=== PATIENT | female | born 1975 | race Caucasian/White ===

== ENCOUNTER 2017-02-02 06:18 | Inpatient (IN) | payer OTHER ==
[2017-01-30 12:21] VITALS: BMI 32.5
[2017-02-02] VITALS (23 sets, daily range): BP systolic 116–154; BP diastolic 57–99; PULSE 75–108; RESP 16–23; Ht 175.3 cm; Wt 105.2 kg
[~2017-02-02] VITALS: Ht 175.3 cm; Wt 105.2 kg
[~2017-02-02 06:18] MED LIST: METF500T4 PO; PROP40TA4 PO; SIMV40TA2 PO; VENL100T PO
[2017-02-02 07:56] LABS: ADD SCAN DIFF NO
[2017-02-02 08:03] LABS: BASOPHILS % 0.2 % (0.0-2.0); EOSINOPHILS # 0.5 10^3/ul (0.0-0.5); EOSINOPHILS % 3.5 % (0.0-7.0); HEMATOCRIT 44.8 % (37.0-47.0); HEMOGLOBIN 15.2 g/dl (12.0-16.0); LYMPHOCYTES # 4.4 10^3/ul (0.8-2.9); MEAN CORPUSCULAR HEMOGLOBIN 32.1 pg (29.0-33.0); MEAN CORPUSCULAR HGB CONC 33.9 g/dl (32.0-37.0); MEAN CORPUSCULAR VOLUME 94.5 fl (82.0-101.0); MEAN PLATELET VOLUME 11.2 fl (7.4-10.4); MONOCYTE # 0.7 10^3/ul (0.3-0.9); MONOCYTES % 5.1 % (0.0-11.0); NEUTROPHIL # 8.2 10^3/ul (1.6-7.5); NEUTROPHILS % 58.8 % (39.0-77.0); PLATELET COUNT 263 10^3/UL (140-415); RED BLOOD COUNT 4.74 10^6/ul (4.20-5.40); RED CELL DISTRIBUTION WIDTH 13.2 % (11.5-14.5); WHITE BLOOD COUNT 13.9 10^3/ul (4.8-10.8)
[2017-02-02] MEDS ORDERED: CEFAZOLIN 2 GM/50 ML (PMX) 50 ML IVPB SCH (08:30)
[2017-02-02] MEDS: LACTATED RINGER'S 1,000 ML IV* SCH ×3 (08:30→17:07)
[2017-02-02] MEDS ORDERED: VANCOMYCIN 1 GM (PMX) 250 ML ONE (08:31)
--- NOTE | 2017-02-02 08:50 | HPN ---
Date/Time of Note Date/Time of Note DATE: 02/02/17 TIME: 08:49 Interval H&P Admission Note Pt. seen H&P reviewed: No system changes TAMEKA PALMA MD February 02, 2017 08:49
[2017-02-02] MEDS ORDERED: BUPIVACAINE 0.25% (MPF) 10 ML 10 ML VIAL ONE (08:57)
[2017-02-02] MEDS ORDERED: THROMBIN 5000 UNIT VIAL ONE ×2 (08:57→13:01)
[2017-02-02] MEDS ORDERED: GELATIN SIZE 100 SPONGE ONE (08:57)
[2017-02-02] MEDS ORDERED: CEFAZOLIN 1 GM INJ ONE (08:57)
[2017-02-02] MEDS ORDERED: HEPARIN 1000 UNITS/ML 10 ML INJ ONE (08:58)
[2017-02-02] MEDS ORDERED: VANCOMYCIN 1 GM (PMX) 250 ML IVPB SCH (09:00)
[2017-02-02] MEDS ORDERED: ROCURONIUM 50 MG INJ ONE ×2 (09:18→09:51)
[2017-02-02] MEDS ORDERED: LIDOCAINE 2% (SDV) 5 ML INJ ONE (09:18)
[2017-02-02] MEDS ORDERED: MIDAZOLAM 1 MG/ML 2 ML INJ ONE ×2 (09:18→09:29)
[2017-02-02] MEDS ORDERED: SUCCINYLCHOLINE CHLORIDE 100 MG/5 ML SYG IV ONE ×2 (09:18→09:51)
[2017-02-02] MEDS ORDERED: PROPOFOL 20 ML ONE ×2 (09:18→10:33)
[2017-02-02] MEDS ORDERED: METOCLOPRAMIDE 10 MG INJ ONE (09:52)
[2017-02-02] MEDS ORDERED: ONDANSETRON 4 MG INJ ONE (09:52)
[2017-02-02] MEDS ORDERED: FAMOTIDINE 20 MG INJ ONE (09:54)
[2017-02-02] MEDS ORDERED: THROMBIN(HUM PLAS)/FIBRINOG/CA 5 ML VIAL TOP ONE ×2 (10:36→15:59)
[2017-02-02] MEDS ORDERED: ESMOLOL 10 ML ONE ×2 (11:34→13:03)
[2017-02-02] MEDS ORDERED: BACITRACIN 50000 UNITS INJ IRR ONE (13:15)
[2017-02-02] MEDS ORDERED: MEPERIDINE 25 MG INJ IV PRN (15:00)
[2017-02-02] MEDS ORDERED: FENTAnyl 50 MCG/ML VIAL IV PRN ×3 (15:00)
[2017-02-02] MEDS ORDERED: HYDROmorphONE (0.2 MG/ML) 10ML SYG IV PRN ×3 (15:00)
[2017-02-02] MEDS ORDERED: DIPHENHYDRAMINE 50 MG INJ IV PRN (15:00)
[2017-02-02] MEDS ORDERED: ONDANSETRON 4 MG INJ IV PRN ×2 (15:00→17:30)
[2017-02-02] MEDS ORDERED: PROCHLORPERAZINE 10 MG INJ IV PRN (15:00)
[2017-02-02] MEDS ORDERED: HYDROmorphONE 2 MG/ML SYG ONE (15:35)
[2017-02-02] MEDS ORDERED: FENTAnyl 50 MCG/ML VIAL ONE (15:35)
[2017-02-02] MEDS ORDERED: HYDROmorphONE 0.2 MG/ML PCA ONE (16:51)
--- NOTE | 2017-02-02 17:08 | OPR ---
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 Foraminal stenosis at L4-5 and L5-S1 bilaterally Postoperative Diagnosis Same Operation Performed Transforaminal lumbar interbody fusion at L4-5 Transforaminal lumbar interbody fusion at L5-S1 Placement of peek cage with bone morphogenic protein and local bone graft at L4- 5 and L5-S1 interspaces Segmental spinal fixation with Alphatec pedicle screws and rods from L4 to the sacrum Repair of iatrogenic dural tear L4 Revision of scar (20 cm AP and lateral intraoperative fluoroscopic imaging Intraoperative nerve monitoring (4-1/2 hours) Surgeon: TAMEKA PALMA MD patient services assistant: MATEO LIMON Anesthesia: general Anesthesiologist: ISAC MOHR MD Estimated Blood Loss: other Specimens Herniated discs L4-5 and L5-S1 Tubes/Drains 2 medium Hemovac drains employed Complications: None Pt Condition Post Procedure: stable Disposition: PACU Operative\Procedure Findings At surgery, the patient had recurrent disc herniations at L4-5 and L5-S1 along with post laminectomy instability at L4-5 and L5-S1 and foraminal stenosis. TAMEKA PALMA MD February 02, 2017 17:08
--- NOTE | 2017-02-02 17:25 | RADRPT ---
PROCEDURE: Intraoperative imaging of the lumbar spine with fluoroscopy. CLINICAL INDICATION: Back pain. Intraoperative. TECHNIQUE: 7 images of the lumbar spine were obtained in the operating room with an image intensif ier. No radiologist was in attendance. 55 seconds of fluoroscopy time was used. COMPARISON: 07/16/2016. FINDINGS: For the purposes of this report, the last apparent true disc level is considered to be L5-S1. Based on this, images demonstrate posterior fusion with pedicle screws and connecting rods at L4, L5, and S1. IMPRESSION: 1. Intraoperative imaging of the lumbar spine. RPTAT: QQ .Chauncey Sahu MD, MD Date Time Electronically viewed and signed by .Chauncey Sahu MD, on 02/02/2017 17:25 .R/
[2017-02-02] MEDS ORDERED: NALOXONE (0.4 MG/ML) INJ IV PRN (17:30)
[2017-02-02] MEDS ORDERED: GLUCAGON 1 MG INJ IM PRN (17:30)
[2017-02-02] MEDS ORDERED: TRIMETHOBENZAMIDE 100 MG/ML VIAL IM PRN (17:30)
[2017-02-02] MEDS ORDERED: DIAZEPAM 5 MG/ML SYG IM PRN (17:30)
[2017-02-02] MEDS ORDERED: BETHANECHOL 25 MG TAB PO PRN (17:30)
[2017-02-02] MEDS ORDERED: AL HYDROX/MG HYDROX/SIMETH 30 ML CUP PO PRN (17:30)
[2017-02-02] MEDS ORDERED: HYDROCODONE/APAP (5/325) TAB PO PRN ×2 (17:30)
[2017-02-02] MEDS ORDERED: GLUCOSE GEL 15 GRAM TUBE BUCCAL PRN (17:30)
[2017-02-02] MEDS ORDERED: PROCHLORPERAZINE 10 MG TAB PO PRN (17:30)
[2017-02-02] MEDS ORDERED: CEPASTAT LOZENGE MT PRN (17:30)
[2017-02-02] MEDS ORDERED: NACL 0.9% 3 ML SYG IV SCH (17:30)
[2017-02-02] MEDS ORDERED: INSULIN ASPART [NOVOLOG] 3 ML PEN SC ONE (17:30)
[2017-02-02] MEDS ORDERED: DEXTROSE 50% 50 ML SYRINGE IV PRN ×2 (17:30)
[2017-02-02] MEDS ORDERED: GLUCOSE GEL 15 GRAM TUBE PO PRN ×2 (17:30)
[2017-02-02] MEDS ORDERED: ACETAMINOPHEN 325 MG TAB PO PRN (17:30)
[2017-02-02] MEDS ORDERED: ZOLPIDEM 5 MG TAB PO PRN (17:30)
[2017-02-02] MEDS ORDERED: DIPHENHYDRAMINE 50 MG CAP PO PRN (17:30)
[2017-02-02] MEDS: HYDROmorphONE 0.2 MG/ML PCA IV SCH (17:34)
[2017-02-02] MEDS: SOD CHLORIDE 0.45% 1,000 ML IV SCH (18:29)
[2017-02-02] MEDS: RANITIDINE 150 MG TAB PO SCH (20:13)
[2017-02-02] MEDS: VANCOMYCIN 1 GM (PMX) 250 ML IVPB SCH (20:13)
--- NOTE | 2017-02-02 20:23 | PN ---
Date/Time of Note Date/Time of Note DATE: 02/02/17 TIME: 19:59 Assessment/Plan VTE Prophylaxis VTE Prophylaxis Intervention: SCD's Lines/Catheters IV Catheter Type (from Nrsg): Peripheral IV Urinary Cath still in place: Yes Reason Cath still needed: other (indicate) (bed bound post surgical) Assessment/Plan Chief Complaint/Hosp Course S/p transforaminal interbody fusion L5-S1 WBC trending down as of labs this AM, repeat labs tomorrow AM Will monitor blood glucose. Restart PO metformin in AM. RISS coverage. Surgery will follow for post-op care. Problems: Subjective 24 Hr Interval Summary Free Text/Dictation The patient is 41 y/o female with history of DM2, HLD, Migraine headaches and DDD who is status post Transforaminal lumbar interbody fusion at L5-D5oxczc peek interbody cages yoko, bmp and screws on 02/02/2017. Preop FSG 223. The patient is in bed resting. Reporting pain up to a 8/10 (on WEEKEND RECEPTIONIST pump). She denies nausea, vomiting, abdominal pain, chest pain or shortness of breath at this time. Last FSG 220. Constitutional: No chills, No diaphoresis, No disoriented, No febrile Eyes: no complaints ENT: other (dry mouth) Respiratory: no complaints Cardiovascular: no complaints Gastrointestinal: no complaints Genitourinary: no complaints Musculoskeletal: back pain, swelling Skin: no complaints Neurologic: other (sleepy) Endocrine: no complaints Psychological: no complaints Immunologic: no complaints Exam/Review of Systems Vital Signs Vitals Vital Signs Date Time Temp Pulse Resp B/P Pulse Ox O2 Delivery O2 Flow Rate FiO2 02/02/17 18:45 101 20 146/85 98 Nasal Cannula 2.0 02/02/17 18:15 98.2 Exam Constitutional: alert, obese, oriented, well developed Psych: other (somnolent) Head: atraumatic, normocephalic Eyes: EOMI, PERRL, nl conjunctiva, nl lids, nl sclera ENMT: nl external ears & nose, nl nasal mucosa & septum, No mucosa pink and moist (dry) Neck: non-tender, supple Respiratory: clear to auscultation, normal air movement, No congested cough, No crackles/rales, No diminished breath sounds, No labored breathing, No wheezing Cardiovascular: edema, nl pulses, regular rate and rhythm, No murmurs/extra sounds Gastrointestinal: nl liver, spleen, non-tender, soft Genitourinary - Female: other (urinary cath in place draining yellow clear urine) Musculoskeletal: other ([place] in place at surgical L4-S1 site), range of motion (limited due to pain), No spine non-tender (post surgical) Extremities: normal pulses, No calf tenderness, No edema, No tenderness Neurological: OIL PLANT OPERATOR II-XII intact, nl mental status, nl speech, nl strength, No confused Skin: nl turgor, No rash or lesions Results Result Diagram: 02/02/17 0740 Results 24 hrs Laboratory Tests Test 02/02/17 07:40 02/02/17 07:46 02/02/17 17:00 02/02/17 18:45 White Blood Count 13.9 H Red Blood Count 4.74 Hemoglobin 15.2 Hematocrit 44.8 Mean Corpuscular Volume 94.5 Mean Corpuscular Hemoglobin 32.1 Mean Corpuscular Hemoglobin Concent 33.9 Red Cell Distribution Width 13.2 Platelet Count 263 Mean Platelet Volume 11.2 H Neutrophils % 58.8 Lymphocytes % 32.0 Monocytes % 5.1 Eosinophils % 3.5 Basophils % 0.2 Nucleated Red Blood Cells % 0.0 Neutrophils # 8.2 H Lymphocytes # 4.4 H Monocytes # 0.7 Eosinophils # 0.5 Basophils # 0.0 Nucleated Red Blood Cells # 0.0 Bedside Glucose 220 224 H 271 H Medications Medications Current Medications Lactated Ringer's (Lr) 1,000 ml @ 25 mls/hr Q24H IV* Last administered on t 17:07; Start 02/02/17 at 08:30 Miscellaneous Information 1 ea NOTE XX ; Start 02/02/17 at 17:30 Glucose (Glutose) 15 gm Q15M PRN PO DECREASED GLUCOSE; Start 02/02/17 at 17:30 Glucose (Glutose) 22.5 gm Q15M PRN PO DECREASED GLUCOSE; Start 02/02/17 at 17:30 Dextrose (D50w Syringe) 25 ml Q15M PRN IV DECREASED GLUCOSE; Start 02/02/17 at 17:30 Dextrose (D50w Syringe) 50 ml Q15M PRN IV DECREASED GLUCOSE; Start 02/02/17 at 17:30 Glucagon (Glucagen) 1 mg Q15M PRN IM DECREASED GLUCOSE; Start 02/02/17 at 17:30 Glucose 15 gm 15 gm Q15M PRN BUCCAL DECREASED GLUCOSE; Start 02/02/17 at 17:30 Sodium Chloride (1/2 NS) 1,000 ml @ 100 mls/hr Q10H IV Last administered on t 18:29; Admin Dose 100 MLS/HR; Start 02/02/17 at 17:08 Acetaminophen/ Hydrocodone Bitart ([place] (5/325)) 1 tab Q4H PRN PO PAIN LEVEL 1 -5; Start 02/02/17 at 17:30; Status Future Hold Acetaminophen/ Hydrocodone Bitart 2 tab 2 tab Q4H PRN PO PAIN LEVEL 6-10; Start 02/02/17 at 17:30; Status Future Hold Vancomycin HCl (Vancocin) 250 ml @ 125 mls/hr Q12H IVPB ; Start 02/02/17 at 20: 00; Stop 02/03/17 at 09:59 Zolpidem Tartrate (Ambien) 5 mg HS PRN PO INSOMNIA; Start 02/02/17 at 17:30 Prochlorperazine (Compazine) 10 mg Q4H PRN PO NAUSEA AND/OR VOMITING; Start 02/02/17 at 17:30 Trimethobenzamide HCl (Tigan) 200 mg Q4H PRN IM NAUSEA AND/OR VOMITING; Start 02/02/17 at 17:30 Ondansetron HCl (Zofran Inj) 4 mg Q6H PRN IV NAUSEA AND/OR VOMITING; Start 02/02 at 17:30 Al Hydrox/Mg Hydrox/Simethicone (Mag-Al Plus) 15 ml Q4H PRN PO CONSTIPATION; Start 02/02/17 at 17:30 Docusate Sodium (Colace) 100 mg BID PO ; Start 02/03/17 at 09:00 Acetaminophen (Tylenol Tab) 650 mg Q4H PRN PO TEMP GREATER THAN 101F OR DEL CASTILLO; Start 02/02/17 at 17:30 Ascorbic Acid (Vitamin C) 1,000 mg BID PO ; Start 02/03/17 at 09:00 Ferrous Sulfate (Ferrous Sulfate (Ec)) 325 mg TID PO ; Start 02/03/17 at 09:00 Ranitidine HCl (Zantac) 150 mg BID PO ; Start 02/02/17 at 21:00 Diazepam (Valium) 5 mg Q4H PRN PO MUSCLE SPASMS; Start 02/02/17 at 17:30 Diazepam (Valium) 5 mg Q4H PRN IM MUSCLE SPASMS; Start 02/02/17 at 17:30 Phenol (Cepastat Lozenge) 1 lozenge PRN PRN MT SORE THROAT; Start 02/02/17 at 17 :30 Bethanechol Chloride (Urecholine) 25 mg PRN PRN PO UNABLE TO VOID; Start at 17:30 Diphenhydramine HCl (Benadryl) 50 mg Q6H PRN PO PRURITUS; Start 02/02/17 at 17: 30 Hydromorphone HCl (Dilaudid WEEKEND RECEPTIONIST) Q4PCA IV Last administered on 02/02/17t 17:34 ; Admin Dose 6 MG; Start 02/02/17 at 17:30 Naloxone HCl (Narcan) 0.2 mg Q2M PRN IV RR 8 BREATHS/MIN OR LESS; Start at 17:30 FRANCISCO J BECKMAN February 02, 2017 20:09
--- NOTE | 2017-02-02 20:57 | OPR ---
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 POSTOPERATIVE DIAGNOSIS: Post-laminectomy instability at L4-L5 and L5-S1 with recurrent disk hernia tion at both levels and foraminal stenosis. OPERATION PERFORMED: 1. Transforaminal lumbar interbody fusion, L4-L5. 2. Transforaminal lumbar interbody fusion, L5-S1. 3. Segmental spinal fixation from L4 to the sacrum with Alphatec pedicle screws and rods bilaterall y. 4. Placement of PEEK cage with bone morphogenic protein and local bone graft at L4-5 and L5-S1 inte rspaces. 5. Repair of iatrogenic dural tear at L4. 6. Revision of scar. 7. AP and lateral intraoperative fluoroscopic imaging. 8. Intraoperative nerve monitoring (4-1/2 hours). SURGEON: Tameka Cheney MD BILLBOARD POSTER: Yasmin Gusman PA-C ANESTHESIA: General endotracheal. ANESTHESIOLOGIST: Marjan García MD ESTIMATED BLOOD LOSS: 400 mL -- none replaced. DRAINS: Two medium Hemovac drains employed. COMPLICATIONS: None. PERTINENT HISTORY AND PHYSICAL: This is a 41-year-old female who sustained an injury to her back in course of employment on 03/05/2016. She has had appropriate conservative care since that time incl uding previous lumbar surgery, but developed recurrent back and bilateral leg pain, left greater [place] n right, which have been refractory to conservative management. Preoperative workup including MRI o f the lumbar spine demonstrated recurrent disk herniations at L4-L5 and L5-S1 with foraminal narrowi ng. Treatment options were discussed with the patient, she elected to proceed with surgery. OPERATIVE FINDINGS AT SURGERY: The patient had a post-laminectomy instability at L4-L5 and L5-S1. She had some recurrent disk protrusions at both levels. Her baseline intraoperative nerve monitorin g revealed a decrease in the left L5 potential of 30 and the left S1 potential of 50%. Both returne d to normal at the completion of surgery. OPERATIVE PROCEDURE: With the patient in supine position after satisfactory induction of general en dotracheal anesthesia by Dr. García, the patient was [facility] the [facility]oscopic OSI table. All pressure points were carefully padded. The back was prepp ed and draped in usual sterile fashion. Athrombic pumps were applied to the legs below the knees an d an indwelling Steele catheter was also placed preoperatively to facilitate bladder drainage during and after the procedure. The previous lumbar scar was used as an anatomic indicator, and a 10 cm in cision was carried out midline through skin and subcutaneous tissue from L4 to the sacrum. Superfic ial retractors were placed and hemostasis secured with electrocautery. Throughout the procedure, co pious amounts of antibacterial irrigating solution were used to periodically irrigate the wound. Th e fascia was incised in midline with a hot knife and a bilateral subperiosteal dissection carried ou t from L4 to the sacrum. Deep retractors were placed and deep hemostasis secured with electrocauter y. Intraoperative lateral radiograph was taken with Eliz clamps placed in what was felt to be the spinous process of L4 and L5. This was confirmed on the lateral imaging. A decompressive laminect aden at L5 was carried out using a Emilee right-angle bone rongeur, Leksell rongeur, Kerrison punche s, and curettes. The ligamentum flavum was excised with sharp dissection. The operating microscope was moved into place. A Eliz clamp was placed on the L4 spinous process and there appeared to be significant instability due to previous laminectomy. It was elected to include the L4-L5 level in the fusion construct for that reason. The L4 spinous process was then removed with a Emilee right- angle bone rongeur and the remaining posterior elements at L4 and L5 were removed with Kerrison punc hes and Leksell rongeurs. The incision was extended in both directions to facilitate this additiona l level. The S1 root on the right was mobilized medially and protected with Johnathan nerve root ret ractor using microdissection technique. This revealed a herniation of the L5-S1 disk. A 15 blade k nife used to cut a rectangular window in the annulus and posterior longitudinal ligament and multipl e degenerative disk fragments were harvested with pituitary rongeurs and sent to laboratory for path ologic study. Additional fragments were harvested using Tripp curettes. The Alphatec disk shaver s were then inserted into the disk space starting with a 6 mm shaver and increasing up to a 9 mm sha anna. The rasps were then inserted into the disk space to abrade the cartilaginous endplates down to subchondral bone. The 6, 7, 8, and ultimately 9 mm trials were then inserted into the disk space. The 9 mm trial appeared to be the appropriate size for this level. A 9 mm lordotic PEEK cage was t hen filled with 1/4 of a small unit of bone morphogenic protein, and was impacted into the disk spac e under direct vision after multiple morselized bone fragments were placed into the anterior aspect of the disk space. The head of english was then removed, and the annulotomy was then plugged with thrombin -soaked Gelfoam and cottonoid until the end of the procedure, at which time the interspace was nicole d with Evicel fibrin glue to minimize extravasation of the BMP into the canal. With this having bee n accomplished, epidural hemostasis was secured with bipolar electrocautery on low setting. Attenti on then turned to the L4 level where the L5 root was mobilized medially and protected with Johnathan nerve retractor using microdissection technique. A 15 blade knife used to cut a rectangular window in the annulus and posterior longitudinal ligament and multiple degenerative disk fragments were tiki vested with pituitary rongeurs and sent to laboratory for pathologic study. The 6, 7, 8, and ultima tely 9 mm Alphatec kings were inserted into the disk space and the rasps were then used to abrade the cartilaginous endplates down to subchondral bone. The 6, 7, 8, and ultimately 9 mm trials were inserted into the disk space at L4-L5. The 9 mm trial appeared to be the correct size for this leve l. Multiple morselized pieces of bone were placed into the anterior aspect of the disk space, follo wed by a 9 mm lordotic PEEK cage filled with another 1/4 of a small unit of bone morphogenic protein . It was impacted under direct vision. The head of english was then removed. This interspace was also se aled with thrombin-soaked Gelfoam and cottonoid until the end of the surgery. With this having been accomplished, it was noted there was a small pin hole CSF leak in the area of her previous scar, a nd a single 4-0 Nurolon suture was used to repair the dural tear. This was later covered with Durag en and fibrin glue at the end of the procedure. The attention was then turned to the pedicles of L4 , L5, and S1 were identified, and the 5.5 mm wide x 40 mm long variable angle pedicle screws were in serted into the pedicles of L4 and L5 bilaterally and a 30 mm long x 6.5 mm wide variable angle scre w was used on the right S1 pedicle, and 25 mm long x 6.5 mm wide screw used in the left S1 pedicle. They were tested for electrical isolation and all tested negative to over 15 microvolts of current. The 60 mm lordotic yoko was then placed on the left connecting the L4, L5, and S1 screws and 70 mm lordotic yoko was placed on the right. They were secured in the tulip with locking caps, and the con struct was sequentially tightened while each interspace was held under compression. The final tight ening was performed. Final AP and lateral fluoroscopic images were taken, which confirmed appropria te positioning of the hardware and the interbody spacers. The anesthesiologist was then asked to pe rform a Valsalva maneuver at 40 mmHg and no spinal fluid leak was noted. As discussed above, a 1 x 1 inch pledget of Duragen Plus was placed over the dural repair, and covered with fibrin glue. The fibrin glue was also used to seal the posterior aspect of the disk spaces at L4-L5 and L5-S1 to mini kenyatta the likelihood of extravasation of BMP. The wound was then closed in layers over 2 medium Hemo vac drains, one below the fascia and one above the fascia, using #1 Stratafix sutures on the deep pa ralumbar musculature and deep fascia of back, 2-0 Stratafix sutures in subcu tissue, and a 4-0 Vicry l subcuticular cosmetic closing suture on the skin. Dermabond and sterile compressive dressings wer e applied. The patient, having tolerated the procedure well, was then turned to the supine position onto her bed and extubated by Dr. García. She was transported to recovery room in satisfactory condi tion. At the conclusion of the procedure, sponge, instrument, and needle counts were all correct. NEED FOR CLINICAL ENGINEERING MANAGER: During this spinal surgical procedure, my orthopedic assistant was used to retrac t and protect the spinal nerves and dural sac. My orthopedic assistant also employed the suction catheters to evacuate blood from the surgical field to improve visualization of the neural structures. The dangelo tant was medically necessary to facilitate the completion of the surgery in a safe and expeditious jaden christensen. [facility] regulations, as well as hospital bylaws, preclude the use of non-license d health care personnel such as operating room technicians, to perform these functions. Throughout the procedure, neural monitoring was carried out by [employer] including EMG, SSEP, and MEP monitoring of the L3, L4, L5, and S1 nerve roots bilaterally. These we re interpreted by neurologist employed by [employer]. Dictated By: TAMEKA CHENEY MD TM/PRANAY Conf#: [id number] DID#: [id number] CC: TAMEKA CHENEY MD; FRANCISCO J BECKMAN MD;*End*
[2017-02-02] MEDS: INSULIN ASPART [NOVOLOG] 3 ML PEN SC SCH (21:30)
[2017-02-03 00:03] VITALS: BP 125/88; RESP 16
[2017-02-03 00:08] VITALS: BP 126/79; PULSE 104; RESP 18
[2017-02-03] MEDS: ACCU-CHEK XX SCH (02:00)
[2017-02-03] MEDS: HYDROmorphONE 0.2 MG/ML PCA IV SCH (02:57)
[2017-02-03] MEDS: SOD CHLORIDE 0.45% 1,000 ML IV SCH ×3 (03:08→23:08)
[2017-02-03 05:30] VITALS: BP 127/68; PULSE 98; RESP 18
[2017-02-03 05:42] LABS: HEMATOCRIT 40.5 % (37.0-47.0); HEMOGLOBIN 13.3 g/dl (12.0-16.0)
[2017-02-03 06:16] LABS: CALCIUM 8.5 mg/dl (8.4-10.2); CREATININE 0.52 mg/dl (0.44-1.00); POTASSIUM 3.5 mmol/L (3.5-5.1)
--- NOTE | 2017-02-03 07:18 | PN ---
Date/Time of Note Date/Time of Note DATE: 02/03/17 TIME: 07:17 Assessment/Plan Lines/Catheters IV Catheter Type (from Nrsg): Saline Lock Steele in Place (from Nrsg): Yes Subjective 24 Hr Interval Summary The patient is postop day #1 following a 2 level transforaminal lumbar interbody fusion from L4 to the sacrum. She is resting comfortably. She is complaining of back pain, however her preoperative leg pain is gone. Her a.m. labs are unremarkable. Her neurovascular structures are intact distally. She has 200 cc in her Hemovac this morning and it will be left in place. We will taper her medications, and discontinue her Steele catheter. She will be mobilized by physical therapy as tolerated. Exam/Review of Systems Vital Signs Vitals Vital Signs Date Time Temp Pulse Resp B/P Pulse Ox O2 Delivery O2 Flow Rate FiO2 02/03/17 05:58 18 02/03/17 05:30 98.3 98 127/68 100 Nasal Cannula 2.0 Intake and Output 02/02/17 02/02/17 02/03/17 15:00 23:00 07:00 Intake Total 3050 ml 1490 ml Output Total 1020 ml 1600 ml Balance 2030 ml -110 ml Results Result Diagram: 02/03/17 0509 02/03/17 0506 TAMEKA PALMA MD February 03, 2017 07:18
[2017-02-03] MEDS ORDERED: OXYCODONE/ACETAMINOPHEN (5/325) TAB PO PRN (07:30)
[2017-02-03] MEDS ORDERED: BETHANECHOL 25 MG TAB PO PRN (08:00)
[2017-02-03] MEDS: LACTATED RINGER'S 1,000 ML IV* SCH (08:30)
[2017-02-03 08:46] VITALS: BP 111/72; RESP 18
[2017-02-03] MEDS: VANCOMYCIN 1 GM (PMX) 250 ML IVPB SCH (09:05)
[2017-02-03] MEDS: INSULIN ASPART [NOVOLOG] 3 ML PEN SC SCH ×4 (09:09→20:32)
[2017-02-03] MEDS: ASCORBIC ACID 500 MG TAB PO SCH ×2 (09:11→20:31)
[2017-02-03] MEDS: FERROUS SULFATE (EC) 325 MG TAB PO SCH ×3 (09:11→20:30)
[2017-02-03] MEDS: DOCUSATE SODIUM 100 MG CAP PO SCH ×2 (09:11→20:30)
[2017-02-03] MEDS: OXYCODONE/ACETAMINOPHEN (10/325) TAB PO PRN ×5 (09:12→23:12)
[2017-02-03] MEDS: RANITIDINE 150 MG TAB PO SCH ×2 (09:12→20:30)
[2017-02-03] MEDS: DIAZEPAM 5 MG TAB PO PRN ×2 (10:44→23:52)
[2017-02-03 14:00] LABS: ADD UMIC YES; URINE BILIRUBIN (Dip) NEGATIVE (NEGATIVE); URINE BLOOD (Dip) 1+ (NEGATIVE); URINE COLOR LT. YELLOW (YELLOW); URINE GLUCOSE (Dip) >=1000 % (NEGATIVE); URINE KETONES (Dip) NEGATIVE (NEGATIVE); URINE LEUKOCYTE ESTERASE (Dip) NEGATIVE (NEGATIVE); URINE NITRITE (Dip) NEGATIVE (NEGATIVE); URINE TOTAL PROTEIN (Dip) NEGATIVE (NEGATIVE); URINE UROBILINOGEN (Dip) 0.2 E.U./dL (0.1-1.0)
[2017-02-03 14:14] LABS: MUCUS,URINE FEW; SQUAMOUS EPITHELIAL CELL,UR OCCASIONAL
--- NOTE | 2017-02-03 18:13 | PN ---
Date/Time of Note Date/Time of Note DATE: 02/03/17 TIME: 18:06 Assessment/Plan VTE Prophylaxis VTE Prophylaxis Intervention: ambulation, SCD's Lines/Catheters IV Catheter Type (from Nrsg): Saline Lock Urinary Cath still in place: No Assessment/Plan Chief Complaint/Hosp Course S/p transforaminal interbody fusion L4-L5, L5-S1 Post-op Day#1 H/h stable. Glucose unremarkable. RISS. Restart outpatient PO meds. Cont. monitor blood glucose. Continue PT care. Hemovac removal as per surgery. Surgery will follow for post-op care. Problems: Subjective 24 Hr Interval Summary Free Text/Dictation The patient is 41 y/o female with history of DM2, HLD, Migraine headaches and DDD who is status post transforaminal 2 lvl lumbar interbody fusion at L4-L5, L5 -S1 using peek interbody cages yoko, bmp and screws on 02/02/[address] Cheney. Preop FSG 223. The patient is in bed resting. Reporting pain up to a 2 -3/10 (on PO meds, off of BREWMASTER pump). She denies nausea, vomiting, abdominal pain , chest pain or shortness of breath at this time. Last FSG 184. Urinary andrews cath has been removed. The patient reports good bladder function. No BM yet. Pt able to ambulate with little difficulty, reports improved gait. Constitutional: improved, no complaints Eyes: no complaints ENT: no complaints Respiratory: no complaints Cardiovascular: no complaints Gastrointestinal: no complaints Genitourinary: no complaints Musculoskeletal: back pain, No swelling Skin: rash (under lower lip) Neurologic: no complaints Endocrine: no complaints, No dry skin, No other, No polydypsia, No polyuria, No temp intolerance Lymphatic: no complaints Psychological: nl mood/affect, no complaints Immunologic: no complaints Exam/Review of Systems Vital Signs Vitals Vital Signs Date Time Temp Pulse Resp B/P Pulse Ox O2 Delivery O2 Flow Rate FiO2 02/03/17 09:00 16 02/03/17 08:46 98.3 102 111/72 02/03/17 05:30 100 Nasal Cannula 2.0 Intake and Output 02/02/17 02/02/17 02/03/17 15:00 23:00 07:00 Intake Total 3050 ml 1490 ml Output Total 1020 ml 1600 ml Balance 2030 ml -110 ml Exam Constitutional: alert, oriented, well developed Psych: nl mood/affect, no complaints Head: atraumatic, normocephalic Eyes: EOMI, PERRL, nl conjunctiva, nl lids, nl sclera ENMT: nl external ears & nose, nl lips & teeth, nl nasal mucosa & septum Neck: non-tender, supple Respiratory: clear to auscultation, normal air movement Cardiovascular: nl pulses, regular rate and rhythm Gastrointestinal: nl liver, spleen, non-tender, soft Musculoskeletal: muscle tone, muscle weakness (left LE EHL 4+/5), nl extremities to inspection Extremities: normal pulses, No calf tenderness, No edema, No tenderness Neurological: ORGAN TUNER ELECTRONIC II-XII intact, nl mental status, nl speech, nl strength Skin: nl turgor, rash or lesions (under lower lip, crusty) Results Result Diagram: 02/03/17 0509 02/03/17 0506 Results 24 hrs Laboratory Tests Test 02/02/17 18:45 02/02/17 20:22 02/03/17 02:53 02/03/17 05:06 Bedside Glucose 271 H 194 181 Sodium Level 136 Potassium Level 3.5 Chloride Level 104 Carbon Dioxide Level 30 Anion Gap 6 L Blood Urea Nitrogen 6 L Creatinine 0.52 Glucose Level 187 Calcium Level 8.5 Test 02/03/17 05:09 02/03/17 09:04 02/03/17 11:30 02/03/17 13:10 Hemoglobin 13.3 Hematocrit 40.5 Bedside Glucose 232 H 224 H Urine Color LT. YELLOW Urine Clarity CLEAR Urine pH 5.5 Urine Specific Hardy 1.020 Urine Ketones NEGATIVE Urine Nitrite NEGATIVE Urine Bilirubin NEGATIVE Urine Urobilinogen 0.2 E.U./dL Urine Leukocyte Esterase NEGATIVE Urine Microscopic RBC 2-5 Urine Microscopic WBC NONE SEEN Urine Squamous Epithelial Cells OCCASIONAL Urine Mucus FEW Urine Hemoglobin 1+ H Urine Glucose >=1000 Urine Total Protein NEGATIVE Test 02/03/17 17:53 Bedside Glucose 184 Medications Medications Current Medications Lactated Ringer's (Lr) 1,000 ml @ 25 mls/hr Q24H IV* Last administered on t 17:07; Start 02/02/17 at 08:30 Miscellaneous Information 1 ea NOTE XX ; Start 02/02/17 at 17:30 Glucose (Glutose) 15 gm Q15M PRN PO DECREASED GLUCOSE; Start 02/02/17 at 17:30 Glucose (Glutose) 22.5 gm Q15M PRN PO DECREASED GLUCOSE; Start 02/02/17 at 17:30 Dextrose (D50w Syringe) 25 ml Q15M PRN IV DECREASED GLUCOSE; Start 02/02/17 at 17:30 Dextrose (D50w Syringe) 50 ml Q15M PRN IV DECREASED GLUCOSE; Start 02/02/17 at 17:30 Glucagon (Glucagen) 1 mg Q15M PRN IM DECREASED GLUCOSE; Start 02/02/17 at 17:30 Glucose 15 gm 15 gm Q15M PRN BUCCAL DECREASED GLUCOSE; Start 02/02/17 at 17:30 Sodium Chloride (1/2 NS) 1,000 ml @ 100 mls/hr Q10H IV Last administered on 18:29; Admin Dose 100 MLS/HR; Start 02/02/17 at 17:08 Zolpidem Tartrate (Ambien) 5 mg HS PRN PO INSOMNIA; Start 02/02/17 at 17:30 Prochlorperazine (Compazine) 10 mg Q4H PRN PO NAUSEA AND/OR VOMITING; Start 02/02/17 at 17:30 Trimethobenzamide HCl (Tigan) 200 mg Q4H PRN IM NAUSEA AND/OR VOMITING; Start 02/02/17 at 17:30 Ondansetron HCl (Zofran Inj) 4 mg Q6H PRN IV NAUSEA AND/OR VOMITING; Start 02/02 at 17:30 Al Hydrox/Mg Hydrox/Simethicone (Mag-Al Plus) 15 ml Q4H PRN PO CONSTIPATION; Start 02/02/17 at 17:30 Docusate Sodium (Colace) 100 mg BID PO Last administered on 02/03/17 09:11; Admin Dose 100 MG; Start 02/03/17 at 09:00 Acetaminophen (Tylenol Tab) 650 mg Q4H PRN PO TEMP GREATER THAN 101F OR DEL CASTILLO; Start 02/02/17 at 17:30 Ascorbic Acid (Vitamin C) 1,000 mg BID PO Last administered on 02/03/17 09:11; Admin Dose 1,000 MG; Start 02/03/17 at 09:00 Ferrous Sulfate (Ferrous Sulfate (Ec)) 325 mg TID PO Last administered on 13:03; Admin Dose 325 MG; Start 02/03/17 at 09:00 Ranitidine HCl (Zantac) 150 mg BID PO Last administered on 02/03/17 09:12; Admin Dose 150 MG; Start 02/02/17 at 21:00 Diazepam (Valium) 5 mg Q4H PRN PO MUSCLE SPASMS Last administered on 02/03/17 10:44; Admin Dose 5 MG; Start 02/02/17 at 17:30 Diazepam (Valium) 5 mg Q4H PRN IM MUSCLE SPASMS; Start 02/02/17 at 17:30 Phenol (Cepastat Lozenge) 1 lozenge PRN PRN MT SORE THROAT; Start 02/02/17 at 17 :30 Diphenhydramine HCl (Benadryl) 50 mg Q6H PRN PO PRURITUS; Start 02/02/17 at 17: 30 Hydromorphone HCl (Dilaudid BREWMASTER) Q4PCA IV Last administered on 02/03/17 02:57 ; Admin Dose 6 MG; Start 02/02/17 at 17:30 Naloxone HCl (Narcan) 0.2 mg Q2M PRN IV RR 8 BREATHS/MIN OR LESS; Start at 17:30 Diagnostic Test (Pha) (Accu-Chek) 1 ea 02 XX ; Start 02/03/17 at 02:00 Bethanechol Chloride (Urecholine) 25 mg PRN PRN PO UNABLE TO VOID; Start at 08:00 Oxycodone/ Acetaminophen (Endocet (10/ 325)) 1 tab Q4H PRN PO PAIN LEVEL 1-5 Last administered on 02/03/17 15:17; Admin Dose 1 TAB; Start 02/03/17 at 07:30 Oxycodone/ Acetaminophen (Endocet (10/ 325)) 2 tab Q4H PRN PO PAIN LEVEL 6-10; Start 02/03/17 at 14:00 FRANCISCO J BECKMAN February 03, 2017 18:13
[2017-02-03] MEDS: metFORMIN 500 MG TAB PO SCH (18:34)
[2017-02-03 21:35] VITALS: BP 121/68; RESP 20
[2017-02-04] MEDS: ACCU-CHEK XX SCH (02:12)
[2017-02-04] MEDS: OXYCODONE/ACETAMINOPHEN (10/325) TAB PO PRN ×4 (03:21→15:42)
--- NOTE | 2017-02-04 06:49 | PN ---
Date/Time of Note Date/Time of Note DATE: 02/04/17 TIME: 06:48 Assessment/Plan Lines/Catheters IV Catheter Type (from Nrsg): Saline Lock Steele in Place (from Nrsg): No Subjective 24 Hr Interval Summary Patient is postop day #2 following a 2 level transforaminal lumbar interbody fusion from L4 to the sacrum. She is resting comfortably in bed. Her Hemovac has 180 cc of drainage. Neurovascular structures are intact distally. I will observe her Hemovac drainage later today and determine whether it can be discontinued. She appears to be doing well with physical therapy. Exam/Review of Systems Vital Signs Vitals Vital Signs Date Time Temp Pulse Resp B/P Pulse Ox O2 Delivery O2 Flow Rate FiO2 02/03/17 21:35 98.3 99 20 121/68 100 02/03/17 05:30 Nasal Cannula 2.0 Intake and Output 02/03/17 02/03/17 02/04/17 15:00 23:00 07:00 Intake Total 550 ml 850 ml 700 ml Output Total 1040 ml 1330 ml Balance 550 ml -190 ml -630 ml Results Result Diagram: 02/03/17 0509 02/03/17 0506 TAMEKA PALMA MD February 04, 2017 06:49
[2017-02-04 08:00] VITALS: BP 98/61; RESP 20
[2017-02-04] MEDS: LACTATED RINGER'S 1,000 ML IV* SCH (08:30)
[2017-02-04] MEDS: INSULIN ASPART [NOVOLOG] 3 ML PEN SC SCH ×2 (08:40→12:57)
[2017-02-04] MEDS: DOCUSATE SODIUM 100 MG CAP PO SCH (08:42)
[2017-02-04] MEDS: metFORMIN 500 MG TAB PO SCH (08:42)
[2017-02-04] MEDS: RANITIDINE 150 MG TAB PO SCH (08:42)
[2017-02-04] MEDS: FERROUS SULFATE (EC) 325 MG TAB PO SCH ×2 (08:42→12:57)
[2017-02-04] MEDS: ASCORBIC ACID 500 MG TAB PO SCH (08:42)
[2017-02-04] MEDS: SOD CHLORIDE 0.45% 1,000 ML IV SCH (08:47)
--- NOTE | 2017-02-04 14:53 | PN ---
Date/Time of Note Date/Time of Note DATE: 02/04/17 TIME: 14:44 Assessment/Plan VTE Prophylaxis VTE Prophylaxis Intervention: ambulation, SCD's Lines/Catheters IV Catheter Type (from Nrsg): Saline Lock Urinary Cath still in place: No Assessment/Plan Chief Complaint/Hosp Course S/p transforaminal interbody fusion L4-L5, L5-S1 Post-op Day#1 Pt improving. ambulating with minimal assistance with a walker. Glucose remain stable, on PO Metformin. Mild RISS. Cont. monitor blood glucose. Hemovac removal as per surgery. Discharge as per surgery. Surgery will follow for post-op care. Problems: Subjective 24 Hr Interval Summary Free Text/Dictation The patient is 41 y/o female with history of DM2, HLD, Migraine headaches and DDD who is status post transforaminal 2 lvl lumbar interbody fusion at L4-L5, L5 -S1 using peek interbody cages yoko, bmp and screws on 02/02/[address] Cheney. Preop FSG 223. The patient is in bed resting. Reporting pain up to a 2 /10 (on PO meds, off of FIRST BREAKER FEEDER pump). She denies nausea, vomiting, abdominal pain, chest pain or shortness of breath at this time. Last FSG 223. Urinary andrews cath has been removed, patient is voiding freely. No BM yet. Pt able to ambulate with minimal difficulty, but steel requires assistance. Good progress with PT, gait further improved. No other complaints Constitutional: improved, no complaints Eyes: no complaints ENT: no complaints Respiratory: no complaints Cardiovascular: no complaints Gastrointestinal: flatus, no complaints, No passing stool Genitourinary: no complaints Musculoskeletal: back pain (improved) Skin: no complaints (rash improved) Neurologic: no complaints Endocrine: no complaints Psychological: nl mood/affect, no complaints Exam/Review of Systems Vital Signs Vitals Vital Signs Date Time Temp Pulse Resp B/P Pulse Ox O2 Delivery O2 Flow Rate FiO2 02/04/17 08:00 97.6 89 20 98/61 98 02/03/17 05:30 Nasal Cannula 2.0 Intake and Output 02/03/17 02/03/17 02/04/17 15:00 23:00 07:00 Intake Total 550 ml 850 ml 700 ml Output Total 1040 ml 1330 ml Balance 550 ml -190 ml -630 ml Exam Constitutional: alert, oriented, well developed Psych: nl mood/affect, no complaints Head: atraumatic, normocephalic Eyes: EOMI, PERRL, nl conjunctiva, nl lids, nl sclera ENMT: mucosa pink and moist, nl external ears & nose, nl lips & teeth, nl nasal mucosa & septum Neck: non-tender, supple Respiratory: clear to auscultation, normal air movement Cardiovascular: nl pulses, regular rate and rhythm Gastrointestinal: bowel sounds, nl liver, spleen, non-tender, soft, No distended, No tender Musculoskeletal: muscle weakness (left EHL 4+/5), nl extremities to inspection , nl gait and stance, No swelling Extremities: normal pulses, No calf tenderness, No edema, No tenderness Neurological: STATE GAME WARDEN II-XII intact, nl mental status, nl speech, nl strength Skin: nl turgor, rash or lesions (skin lesion under the lower lip resolving) Lymph: nl lymph nodes Results Result Diagram: 02/03/17 0509 02/03/17 0506 Results 24 hrs Laboratory Tests Test 02/03/17 17:53 02/03/17 20:14 02/04/17 01:47 02/04/17 08:07 Bedside Glucose 184 254 H 198 220 Test 02/04/17 12:35 Bedside Glucose 223 H Medications Medications Current Medications Lactated Ringer's (Lr) 1,000 ml @ 25 mls/hr Q24H IV* Last administered on t 17:07; Start 02/02/17 at 08:30 Miscellaneous Information 1 ea NOTE XX ; Start 02/02/17 at 17:30 Glucose (Glutose) 15 gm Q15M PRN PO DECREASED GLUCOSE; Start 02/02/17 at 17:30 Glucose (Glutose) 22.5 gm Q15M PRN PO DECREASED GLUCOSE; Start 02/02/17 at 17:30 Dextrose (D50w Syringe) 25 ml Q15M PRN IV DECREASED GLUCOSE; Start 02/02/17 at 17:30 Dextrose (D50w Syringe) 50 ml Q15M PRN IV DECREASED GLUCOSE; Start 02/02/17 at 17:30 Glucagon (Glucagen) 1 mg Q15M PRN IM DECREASED GLUCOSE; Start 02/02/17 at 17:30 Glucose 15 gm 15 gm Q15M PRN BUCCAL DECREASED GLUCOSE; Start 02/02/17 at 17:30 Sodium Chloride (1/2 NS) 1,000 ml @ 100 mls/hr Q10H IV Last administered on 18:29; Admin Dose 100 MLS/HR; Start 02/02/17 at 17:08 Zolpidem Tartrate (Ambien) 5 mg HS PRN PO INSOMNIA; Start 02/02/17 at 17:30 Prochlorperazine (Compazine) 10 mg Q4H PRN PO NAUSEA AND/OR VOMITING; Start 02/02/17 at 17:30 Trimethobenzamide HCl (Tigan) 200 mg Q4H PRN IM NAUSEA AND/OR VOMITING; Start 02/02/17 at 17:30 Ondansetron HCl (Zofran Inj) 4 mg Q6H PRN IV NAUSEA AND/OR VOMITING; Start 02/02 at 17:30 Al Hydrox/Mg Hydrox/Simethicone (Mag-Al Plus) 15 ml Q4H PRN PO CONSTIPATION Last administered on 02/04/17 04:32; Admin Dose 15 ML; Start 02/02/17 at 17:30 Docusate Sodium (Colace) 100 mg BID PO Last administered on 02/04/17 08:42; Admin Dose 100 MG; Start 02/03/17 at 09:00 Acetaminophen (Tylenol Tab) 650 mg Q4H PRN PO TEMP GREATER THAN 101F OR DEL CASTILLO; Start 02/02/17 at 17:30 Ascorbic Acid (Vitamin C) 1,000 mg BID PO Last administered on 02/04/17 08:42; Admin Dose 1,000 MG; Start 02/03/17 at 09:00 Ferrous Sulfate (Ferrous Sulfate (Ec)) 325 mg TID PO Last administered on 12:57; Admin Dose 325 MG; Start 02/03/17 at 09:00 Ranitidine HCl (Zantac) 150 mg BID PO Last administered on 02/04/17 08:42; Admin Dose 150 MG; Start 02/02/17 at 21:00 Diazepam (Valium) 5 mg Q4H PRN PO MUSCLE SPASMS Last administered on 02/03/17 23:52; Admin Dose 5 MG; Start 02/02/17 at 17:30 Diazepam (Valium) 5 mg Q4H PRN IM MUSCLE SPASMS; Start 02/02/17 at 17:30 Phenol (Cepastat Lozenge) 1 lozenge PRN PRN MT SORE THROAT; Start 02/02/17 at 17 :30 Diphenhydramine HCl (Benadryl) 50 mg Q6H PRN PO PRURITUS; Start 02/02/17 at 17: 30 Hydromorphone HCl (Dilaudid FIRST BREAKER FEEDER) Q4PCA IV Last administered on 02/03/17 02:57 ; Admin Dose 6 MG; Start 02/02/17 at 17:30 Naloxone HCl (Narcan) 0.2 mg Q2M PRN IV RR 8 BREATHS/MIN OR LESS; Start at 17:30 Diagnostic Test (Pha) (Accu-Chek) 1 ea 02 XX Last administered on 02/04/17 02: 12; Admin Dose 1 EA; Start 02/03/17 at 02:00 Bethanechol Chloride (Urecholine) 25 mg PRN PRN PO UNABLE TO VOID; Start at 08:00 Oxycodone/ Acetaminophen (Endocet (10/ 325)) 1 tab Q4H PRN PO PAIN LEVEL 1-5 Last administered on 02/03/17 15:17; Admin Dose 1 TAB; Start 02/03/17 at 07:30 Oxycodone/ Acetaminophen (Endocet (10/ 325)) 2 tab Q4H PRN PO PAIN LEVEL 6-10 Last administered on 02/04/17 11:22; Admin Dose 2 TAB; Start 02/03/17 at 14:00 FRANCISCO J BECKMAN February 04, 2017 14:53
== END 2017-02-04 17:15 | disposition home or self-care (01) | DRG 460 ==
LOC: REC 06:18 → MS1 17:37
PROVIDERS: ADMIT Orthopaedic Surgery; ATTEND Orthopaedic Surgery
PROC: 0SG30AJ Fusion of Lumbosacral Joint with Interbody Fusion Device, Posterior Approach, Anterior Column, Open Approach (ICD-10-PCS; 2017-02-02)
PROC: 00UT0JZ Supplement Spinal Meninges with Synthetic Substitute, Open Approach (ICD-10-PCS; 2017-02-02)
PROC: 01NB0ZZ Release Lumbar Nerve, Open Approach (ICD-10-PCS; 2017-02-02)
PROC: 4A11X4G Monitoring of Peripheral Nervous Electrical Activity, Intraoperative, External Approach (ICD-10-PCS; 2017-02-02)
PROC: 0SG00AJ Fusion of Lumbar Vertebral Joint with Interbody Fusion Device, Posterior Approach, Anterior Column, Open Approach (ICD-10-PCS; principal; 2017-02-02 09:30)
DX: M51.26 Other intervertebral disc displacement, lumbar region (principal); E11.9 Type 2 diabetes mellitus without complications; G97.41 Accidental puncture or laceration of dura during a procedure; M51.17 Intervertebral disc disorders with radiculopathy, lumbosacral region; E78.5 Hyperlipidemia, unspecified; G43.909 Migraine, unspecified, not intractable, without status migrainosus; Z87.828 Personal history of other (healed) physical injury and trauma; M53.2X6 Spinal instabilities, lumbar region; M53.2X7 Spinal instabilities, lumbosacral region; Y83.9 Surgical procedure, unspecified as the cause of abnormal reaction of the patient, or of later complication, without mention of misadventure at the time of the procedure; Y92.234 Operating room of hospital as the place of occurrence of the external cause
CPT/HCPCS: 72114; 80048; 81001; 81003; 82962; 85014; 85018; 85025; 86850; 86900; 86901; 86920; 87086; 97116; 97163; 97530; C1713; C9250; J0330; J0690; J1170; J1644; J1815; J2175; J2250; J2405; J2765; J3010; J3370; J7120; L8699